=== PATIENT | female | born 1950 | race Caucasian/White ===

== ENCOUNTER 2018-06-07 18:09 | Inpatient (IN) | payer OTHER ==
[~2018-06-07] VITALS: Ht 149.9 cm; Wt 70.3 kg
--- NOTE | 2018-06-07 19:23 | NUR ---
SE RECIBE PTE ALERTA Y ORIENTADA X3,ES REFERIDA DEL CENTRO DE GASTROTEROLOGIA ,POR SANGRADO RECTAL BUFFY REFIERE LA PTE ,REFIERE TENER MARIN HERNIA .
--- NOTE | 2018-06-07 20:30 | NUR ---
SE RECIBE PTE FEMENINA ALERTA Y ORIENTADA X3,SIN FAMILIAR,ES EVALUADA POR SE ORIENTA A PTE SOBRE ORDEN MEDICA,SE MERISSA MUESTRAS Y SE ENVIAN A LABORATORIO,SE FUENTES TUBO MARCO PARA 3 UNIDADES DE PRBC LAS CUALES SE TRANSFUNDIRAN 2 UNIDADES Y LA 3RA EN HOLD,SE CANALIZA Y COLOCA IVF Y SE MANTIENE PATENTE,SE ENTREGA GASTROVIEW Y SE ORIENTA A ANISH TOMARLO,SE ADMINISTRAN MEDICAMENTOS LOS CUALES TOLERA,SE MANTIENE A PTE EN OBSERVACION POR CAMBIOS.
--- NOTE | 2018-06-07 22:15 | NUR ---
MR.RODRIGUEZ VIRGEN AVILA NOTIFICA QUE LAS UNIDADES DE PRBC ESTAN DISPONIBLES.
--- NOTE | 2018-06-08 01:20 | NUR ---
SE REALIZA MP DUKES CON MIS DARIUS SE COMIENZA A TRANSFUNDIR 1 UNIDAD DE PRBC.
--- NOTE | 2018-06-08 07:49 | NUR ---
SE RECIBE PTE ALERTA Y CONCIENTE POR 3 EN HYACINTH CON BARANDAS ELEVADA Y TIMBRE ACCESIBLE, SE OBSERVA VENOPUNCION PATENTE Y MARIA L DE EDEMA, SE ORIENTA PTE QUE ESTA EN NPO, PTE BAJANDO LA SEGUNDA UNIDAD DE REBA, PTE EN EPSERA DEL DR Cheung.VIVAS PTE SE MANTIENE EN OBSERVACION Y BAJO TRATAMIENTO.
[2018-06-16] MEDS ORDERED: METRONIDAZOLE500 MG PO (12:03)
[2018-06-16] MEDS ORDERED: CULTURELLE1 EACH PO (12:04)
== END 2018-06-16 17:58 | disposition home or self-care (01) | DRG 348 ==
LOC: ER 18:09 → MEDJ 06-08 09:13 → MEDI 06-08 09:13 → MEDJ 06-08 11:02
PROVIDERS: Surgery; ADMIT Internal Medicine
PROC: 30233N1 Transfusion of Nonautologous Red Blood Cells into Peripheral Vein, Percutaneous Approach (ICD-10-PCS; 2018-06-08)
PROC: 0DBK8ZX Excision of Ascending Colon, Via Natural or Artificial Opening Endoscopic, Diagnostic (ICD-10-PCS; 2018-06-09)
PROC: 0DBM8ZX Excision of Descending Colon, Via Natural or Artificial Opening Endoscopic, Diagnostic (ICD-10-PCS; 2018-06-09)
PROC: 06BY0ZC Excision of Hemorrhoidal Plexus, Open Approach (ICD-10-PCS; principal; 2018-06-09 14:00)
PROC: 3E0T3BZ Introduction of Anesthetic Agent into Peripheral Nerves and Plexi, Percutaneous Approach (ICD-10-PCS; 2018-06-09 14:00)
DX: K64.8 Other hemorrhoids (principal); K62.5 Hemorrhage of anus and rectum; N39.0 Urinary tract infection, site not specified; D50.8 Other iron deficiency anemias; D12.2 Benign neoplasm of ascending colon; K64.2 Third degree hemorrhoids